=== PATIENT | male | born 1975 | race Caucasian/White ===

== ENCOUNTER 2019-12-01 06:32 | Day surgery (SDC) | payer BC ==
[~2019-12-01 06:32] MED LIST: Lactated Ringers 1,000 ML IV SCH; Sodium Chloride 0.9% 10 ML SDV IV PRN; Sodium Chloride 0.9% 10 ML Syringe FLUSH PRN; Sodium Chloride 0.9% 2.5 ML Syringe FLUSH PRN; ceFAZolin 2 GM in Premix Bag 1 BAG IV ONE
[2019-12-01] MEDS ORDERED: Propofol 200 MG/20 ML SDV ONE (07:01)
[2019-12-01] MEDS ORDERED: fentaNYL 100 MCG/2 ML SDV ONE (07:01)
[2019-12-01] MEDS ORDERED: Lidocaine 2% 5 ML SDV ONE (07:01)
[2019-12-01] MEDS ORDERED: Midazolam 1 MG/ML 2 ML SDV ONE ×2 (07:02→07:56)
[2019-12-01] MEDS ORDERED: Bupivacaine 0.5% 10 ML SDV ONE (07:17)
[2019-12-01] MEDS ORDERED: Lidocaine 1% 20 ML MDV ONE (07:17)
--- NOTE | 2019-12-01 07:20 | PCM.PREANE ---
Preanesthetic Assessment - Anesthesia/Transfusion/Family Hx Anesthesia History: Prior Anesthesia Without Reaction Family History of Anesthesia Reaction: No Transfusion History: Unknown Intubation History: Unknown - Review of Systems General: No Symptoms Pulmonary: No Symptoms Cardiovascular: No Symptoms Gastrointestinal: No Symptoms Neurological: No Symptoms Other: Reports: None - Physical Assessment Height: 5 ft 7 in Weight: 83.007 kg ASA Class: 2 Mental Status: Alert & Oriented x3 Airway Class: Mallampati = 1 Dentition: Reports: Normal Dentition Thyro-Mental Finger Breadths: 3 Mouth Opening Finger Breadths: 3 ROM/Head Extension: Full Lungs: Clear to Auscultation, Normal Respiratory Effort Cardiovascular: Regular Rate, Regular Rhythm - Allergies Allergies/Adverse Reactions: Allergies Allergy/AdvReac Type Severity Reaction Status Date / Time No Known Allergies Allergy Verified 12/01/19 07:15 - Blood Blood Available: No - Anesthesia Plan Pre-Op Medication Ordered: None - Acknowledgements Anesthesia Type Planned: MAC Pt an Appropriate Candidate for the Planned Anesthesia: Yes Alternatives and Risks of Anesthesia Discussed w Pt/Guardian: Yes Pt/Guardian Understands and Agrees with Anesthesia Plan: Yes PreAnesthesia Questionnaire HEENT History: Reports: Allergic Rhinitis, Other (See Below) Other HEENT History: wears glasses Cardiovascular History: Reports: High Cholesterol Respiratory History: Reports: None Gastrointestinal History: Reports: None Genitourinary History: Reports: None Musculoskeletal History: Reports: Arthritis Neurological History: Reports: None Psychiatric History: Reports: None Endocrine/Metabolic History: Reports: None Hematologic History: Reports: Other (See Below) Other Hematologic History: possible transfusion during corrective surgery for club foot Immunologic History: Reports: None Oncologic (Cancer) History: Reports: None Dermatologic History: Reports: Eczema - Past Surgical History Head Surgeries/Procedures: Reports: None HEENT Surgical History: Reports: None Cardiovascular Surgical History: Reports: None Respiratory Surgical History: Reports: None GI Surgical History: Reports: None Male Surgical History: Reports: None Endocrine Surgical History: Reports: None Neurological Surgical History: Reports: None Musculoskeletal Surgical History: Reports: Other (See Below) Other Musculoskeletal Surgeries/Procedures:: bone graft from rt hip to left foot for corrective surgery for club foot Oncologic Surgical History: Reports: None Dermatological Surgical History: Reports: None - SUBSTANCE USE Smoking Status *Q: Never Smoker Recreational Drug Use History: No - HOME MEDS Home Medications: Home Meds atorvaSTATin Calcium [Atorvastatin Calcium] 20 mg PO DAILY 11/28/19 [History] - CURRENT (IN HOUSE) MEDS Current Meds: Current Medications Lactated Ringer's (Ringers, Lactated) 1,000 mls @ 125 mls/hr IV ASDIRECTED VNIH Last Admin: 12/01/19 07:15 Dose: 125 mls/hr Sodium Chloride (Saline Flush) 10 ml FLUSH ASDIRECTED PRN PRN Reason: Keep Vein Open Sodium Chloride (Saline Flush) 2.5 ml FLUSH ASDIRECTED PRN PRN Reason: Keep Vein Open Sodium Chloride (Normal Saline) 10 ml IV ASDIRECTED PRN PRN Reason: IV Use Discontinued Medications Fentanyl (Sublimaze) Confirm Administered Dose 100 mcg .ROUTE .STK-MED ONE Stop: 12/01/19 07:02 Cefazolin Sodium/Dextrose 2 gm (/ Premix) 50 mls @ 100 mls/hr IV ONETIME ONE Stop: 11/30/19 12:35 Lidocaine (Xylocaine-Mpf 2%) Confirm Administered Dose 5 ml .ROUTE .STK-MED ONE Stop: 12/01/19 07:02 Midazolam HCl (Versed 1 Mg/Ml) Confirm Administered Dose 2 mg .ROUTE .STK-MED ONE Stop: 12/01/19 07:03 Propofol (Diprivan 20 Ml) Confirm Administered Dose 400 mg .ROUTE .STK-MED ONE Stop: 12/01/19 07:02
[2019-12-01] MEDS ORDERED: 50% Dextrose in Water 50 ML Syringe IVPUSH PRN (07:49)
[2019-12-01] MEDS ORDERED: Atropine 0.1 MG/ML 10 ML Syringe IVPUSH PRN ×2 (07:49)
[2019-12-01] MEDS ORDERED: EPINEPHrine 1:10,000 1 MG/10 ML Syringe IVPUSH PRN (07:49)
[2019-12-01] MEDS ORDERED: fentaNYL 100 MCG/2 ML SDV IVPUSH PRN (07:49)
[2019-12-01] MEDS ORDERED: Naloxone 0.4 MG/ML Syringe IVPUSH PRN (07:49)
[2019-12-01] MEDS ORDERED: Albuterol 0.083% 2.5 MG/3 ML Neb Soln NEB PRN (07:49)
[2019-12-01] MEDS ORDERED: Glycopyrrolate 0.2 MG/ML SDV ONE (07:56)
[2019-12-01] MEDS ORDERED: ceFAZolin 1 GM Vial ONE (07:57)
[2019-12-01] MEDS ORDERED: Sodium Chloride 0.9% 20 ML ONE (07:57)
--- NOTE | 2019-12-01 08:31 | PCM.OPNOTE ---
- General Post-Op/Procedure Note Date of Surgery/Procedure: 12/01/19 Operative Procedure(s): Excision posterior neck cyst Findings: 1.5 cm in diameter sebaceous cyst on posterior neck cyst Pre Op Diagnosis: Posterior neck cyst Post-Op Diagnosis: Sebaceous cyst Anesthesia Technique: Local, MAC Primary Surgeon: Joyce Chopra Fluid Replacement, Intraop: 800 Condition: Good
--- NOTE | 2019-12-01 09:01 | PCM.POSTAN ---
POST ANESTHESIA ASSESSMENT - MENTAL STATUS Mental Status: Alert, Oriented - VITAL SIGNS Vital Signs: Last Vital Signs Temp 36.2 C 12/01/19 08:25 Pulse 84 12/01/19 08:50 Resp 16 12/01/19 08:50 BP 94/63 12/01/19 08:50 Pulse Ox 94 L 12/01/19 08:50 - RESPIRATORY Respiratory Status: Respiratory Rate WNL, Airway Patent, O2 Saturation Stable - CARDIOVASCULAR CV Status: Pulse Rate WNL, Blood Pressure Stable - GASTROINTESTINAL GI Status: No Symptoms - PAIN Pain Score: 0 - POST OP HYDRATION Hydration Status: Adequate & Stable - OBSERVATIONS Free Text/Narrative:: No anesthesia problems
--- NOTE | 2019-12-01 10:02 | PCM48HPAN ---
Post Anesthesia Note - EVALUATION WITHIN 48HRS OF ANESTHETIC Vital Signs in Normal Range: Yes Patient Participated in Evaluation: Yes Respiratory Function Stable: Yes Airway Patent: Yes Cardiovascular Function Stable: Yes Hydration Status Stable: Yes Pain Control Satisfactory: Yes Nausea and Vomiting Control Satisfactory: Yes Mental Status Recovered: Yes Vital Signs: Last Vital Signs Temp 36.2 C 12/01/19 08:25 Pulse 84 12/01/19 08:50 Resp 16 12/01/19 08:50 BP 94/63 12/01/19 08:50 Pulse Ox 94 L 12/01/19 08:50 - COMMENTS/OBSERVATIONS Free Text/Narrative:: No anesthesia problems
--- NOTE | 2019-12-01 13:27 | OR ---
SURGEON: JOYCE CHOPRA MD DATE OF PROCEDURE: 12/01/2019 PREOPERATIVE DIAGNOSIS: Posterior neck mass. POSTOPERATIVE DIAGNOSIS: Posterior neck sebaceous cyst. PROCEDURE PERFORMED: Excision, posterior neck mass. PRIMARY SURGEON: Joyce Chopra MD. ANESTHESIA: MAC, local. FLUIDS: 800 mL of crystalloid. ESTIMATED BLOOD LOSS: 2 mL. FINDINGS: 1.5 cm in diameter sebaceous cyst located along the posterior neck. COMPLICATIONS: None. INDICATIONS: The patient is a 44-year-old male who presented with an enlarging posterior neck mass. On exam, it appeared to be a cyst. Given its location, however, the decision was made to proceed to the operating room for excision. I explained the procedure; expected perioperative course; and risks including bleeding, infection, or damage to surrounding structures. The patient verbalized understanding and wishes to proceed. PROCEDURE IN DETAIL: The patient was brought into the OR and placed on the OR table in right lateral decubitus position. A time-out was completed verifying the patient's name, age, date of , allergies, and procedure to be performed. Monitored anesthesia care was induced. Once adequate anesthesia was achieved, the posterior neck was prepped and draped in usual standard fashion. I anesthetized the area around the mass with 1% lidocaine plain. A 3 cm incision was made horizontally along the skin lines using a 15 blade. Immediately upon making this incision, proteinaceous material was expressed. This was consistent with the findings of a sebaceous cyst. I elevated the skin with an Adson and dissected down to the level of the cyst wall in the subcutaneous fat laterally. I then used electrocautery to dissect the cyst free from its surrounding subcutaneous structures. Once the cyst was completely excised, I placed it on the back table and measured it. It was 1.5 cm in diameter. I then irrigated the wound cavity and hemostasis was achieved with electrocautery. I then closed the wound with layers of interrupted 3-0 Vicryl suture to close the subcutaneous fat space. I then closed the skin with interrupted 3-0 Ethilon sutures. A sterile dressing was applied. The patient tolerated the procedure well and was transferred to the PACU in stable condition. All counts were complete and correct at the end of the case. ALEJANDRA / MODL /[id number]
== END 2019-12-01 10:12 | disposition home or self-care (01) ==
LOC: MW.SDS 06:32
PROVIDERS: ATTEND Surgery
DX: L72.3 Sebaceous cyst (principal); E78.00 Pure hypercholesterolemia, unspecified; Z79.899 Other long term (current) drug therapy
CPT/HCPCS: 11422; 12042; J0690; J2001; J2250; J2704; J3010; J3490; J7120